=== PATIENT | male | born 1975 | race Caucasian/White ===

== ENCOUNTER 2017-07-09 08:44 | Emergency (ER) | payer OTHER ==
[2017-07-09 09:01] VITALS: BMI 27.4
[2017-07-09 09:05] VITALS: BP 134/99; PULSE 70; RESP 18; TEMP 98.5; O2SAT 96
[2017-07-09] MEDS ORDERED: Tmp-Smz 800 mg-160 mg DS Tab PO STA (09:51)
[2017-07-09] MEDS ORDERED: Tmp-Smz 800 mg-160 mg DS Tab ONE (09:55)
--- NOTE | 2017-07-09 10:04 | C.PDOC ---
Time Seen by Provider: 07/09/17 09:21 Chief Complaint (Nursing): Abnormal Skin Integrity History Per: Patient, Family Onset/Duration Of Symptoms: Days (about 2 weeks) Current Symptoms Are (Timing): Still Present Location Of Injury: Posterior: Back (Upper) Quality Of Symptoms: Painful, Swollen Severity: Moderate Additional History Per: Prior Records Past Medical History Reviewed: Historical Data, Nursing Documentation, Vital Signs Vital Signs: Last Vital Signs Temp 98.5 F 07/09/17 09:01 Pulse 70 07/09/17 09:01 Resp 18 07/09/17 09:01 BP 134/99 H 07/09/17 09:01 Pulse Ox 96 07/09/17 09:01 - Medical History PMH: Hyperlipidemia Other PMH: "Brain problem" Family History: States: Unknown Family Hx - Social History Hx Alcohol Use: Yes Hx Substance Use: No - Immunization History Hx Tetanus Toxoid Vaccination: No Hx Influenza Vaccination: Yes Hx Pneumococcal Vaccination: No Review Of Systems Except As Marked, All Systems Reviewed And Found Negative. Constitutional: Negative for: Fever, Chills, Weakness ENT: Negative for: Throat Pain Cardiovascular: Negative for: Chest Pain Respiratory: Negative for: Shortness of Breath Gastrointestinal: Negative for: Nausea, Vomiting Musculoskeletal: Negative for: Neck Pain Skin: Negative for: Rash Neurological: Negative for: Weakness, Numbness, Headache Physical Exam - Physical Exam Appears: Non-toxic, No Acute Distress Skin: Normal Color, Warm, Dry Head: Atraumatic, Normacephalic Eye(s): bilateral: Normal Inspection, PERRL, EOMI Neck: Normal ROM, Supple Lymphatic: No Adenopathy Cardiovascular: Rhythm Regular Respiratory: Normal Breath Sounds, No Accessory Muscle Use Gastrointestinal/Abdominal: Soft, No Tenderness Back: Other (Fluctuant abscess on upper back. No surrounding cellulitis. ) Extremity: Normal ROM Neurological/Psych: Oriented x3, Normal Motor, Normal Sensation ED Course And Treatment O2 Sat by Pulse Oximetry: 96 Pulse Ox Interpretation: Normal - Incision & Drainage Of Abscess Prep Used: Betadine Procedure: Incised W/Scalpel Blade#: (11), Drained Pus, Cultures Obtained And Sent To Lab Disposition Counseled Patient/Family Regarding: Diagnosis, Need For Followup, Rx Given - Disposition Referrals: Colton Taylor MD [Medical Doctor] - Disposition: HOME/ ROUTINE Disposition Time: 10:05 Condition: IMPROVED Additional Instructions: Follow up with your doctor or return for a wound check in 3 days. Return to the ER if you develop fever, chills, worsening of symptoms or if you have any other concerns. Prescriptions: Sulfamethoxazole/Trimethoprim [Bactrim DS 800 mg-160 mg] 1 tab PO BID #14 tab Instructions: Abscess Incision and Drainage (ED) - Clinical Impression Clinical Impression: Abscess of upper back excluding scapular region
== END 2017-07-09 10:12 | disposition home or self-care (01) ==
LOC: C.ER 08:44
DX: L02.212 Cutaneous abscess of back [any part, except buttock and flank] (principal)